=== PATIENT | male | born 1960 | race Caucasian/White ===

== ENCOUNTER → 2021-02-24 | Outpatient (CLI) | payer BC ==
[~2021-02-24] MED LIST: BISOPROLOL FUMAR5 MG; IOPAMIDOL 370 MG/ML 200 ML INFUS..BTL INJ ONE; NABUMETONE750 MG; NORVASC10 MG PO; PAROXETINE HCL20 MG PO; SODIUM CHLORIDE 0.9% 50ML 50 ML ONE; TAMSULOSIN HCL0.4 MG; TYLENOL # 31 EA PO; VYTORIN 10-101 EACH
[2021-02-24 14:17] LABS: BLOOD UREA NITROGEN 12 mg/dL (7-26); BUN/CREATININE RATIO 11 (6-25); CREATININE, SERUM 1.08 mg/dL (0.72-1.25); EST GLOMERULAR FILTRATION RATE > 60 ML/MIN (60-)
== END ==
LOC: CT 13:00
PROVIDERS: ATTEND Family Medicine
DX: R22.1 Localized swelling, mass and lump, neck (principal); G45.1 Carotid artery syndrome (hemispheric)
CPT/HCPCS: 36415; 70491; 82565; 84520; 93880; Q9967